=== PATIENT | male | born 1960 | race Caucasian/White ===

== ENCOUNTER 2023-12-05 14:20 | Inpatient (IN) | payer BC, SELFPAY ==
[2023-12-05] VITALS (14 sets, daily range): BP systolic 109–171; BP diastolic 75–108; PULSE 82–120; BMI 31.6; BMI 31.1
--- NOTE | 2023-12-05 11:04 | ED.GENMED ---
Addendum entered and electronically signed by Dmitri Akers MD 12/05/23 13:21:
Secondary diagnosis thrombocytopenia
Consent signed for blood
Original Note:
History of Present Illness
General
Chief Complaint: Anal/Rectal Problem
Source: patient
Exam Limitations: none
Time Seen by Provider: 12/05/23 10:51
History of Present Illness
History of Present Illness:
Patient with 4 episodes of bleeding yesterday. 2-3 episodes today. Describing mostly blood. Describes the clots as dark but the blood is maroon to bright red. Some cramps with this but no significant abdominal pain. No significant history of GI
bleeding. Does feel slightly tired.
Past History
Past History
ED Past Medical History: HTN
ED Past Surgical History: Orthopedic
Social History
Tobacco: Non-smoker
Alcohol: Occasional
Living: with family
Review of Systems
Review of Systems
All Other Systems: Not applicable
Constitutional: Reports fatigue; Denies fever or chills
ABD/GI: Denies vomiting
Phy Exam
Physical Exam
Physical Exam:
GENERAL: Alert and oriented in no apparent distress
EYE: Orbits normal.
NECK: Supple
CARDIAC: Regular rate and rhythm without any obvious murmurs.
LUNGS: Clear breath sounds,normal
ABDOMEN: Soft, without focal tenderness or distention. Rectal exam with maroon to bright red blood. Picture from his toilet shows significant bright red blood with multiple dark clots.
NEUROLOGICAL: Alert and oriented , grossly non-focal
SKIN: Warm and dry, no rash or lesion, no discoloration, skin intact.
MUSCULOSKELETAL: No edema,no deformity.Good color
PSYCH: Normal and appropriate interaction.
Course
Orders/Labs/Results
Orders:
Orders
12/05/23 11:03
IV Insert/Care/Rem.- Treatment PRN
12/05/23 11:09
Type+Screen Urgent
Complete Blood Count/With Diff Urgent
Comprehensive Metabolic Panel Urgent
Lipase Urgent
Abnormal Lab Results
12/05/23
11:09
RBC 3.42 L 10^6/uL
(4.70-6.10)
Hgb 12.1 L g/dL
(13.0-18.0)
Hct 34.0 L %
(39.0-52.0)
MCV 99.4 H fL
(80.0-94.0)
MCH 35.4 H pg
(27.0-31.0)
Plt Count 72 L 10^3/uL
(130-400)
Absolute Lymphs (auto) 0.8 L 10^3/uL
(1.2-3.4)
Lymphocytes % 13.1 L %
(20.5-51.1)
Monocytes % 10.1 H %
(1.7-9.3)
BUN 21 H mg/dl
(9-20)
Total Bilirubin 1.5 H mg/dl
(0.2-1.3)
Alkaline Phosphatase 129 H U/L
(38-126)
12/05/23 11:09
12/05/23 11:09
Vital Signs
Initial and Last Documented VS:
Initial Vital Signs
Temp Pulse Resp BP Pulse Ox
99.0 F 116 20 138/96 98
12/05/23 10:20 12/05/23 10:20 12/05/23 10:20 12/05/23 10:20 12/05/23 10:20
Last Documented Vital Signs
Temp Pulse Resp BP Pulse Ox
99.0 F 109 16 157/89 95
12/05/23 10:20 12/05/23 12:00 12/05/23 12:00 12/05/23 12:00 12/05/23 12:00
*Pulse Oximetry
Patient hypoxic: no
*Critical Care Note
Total Time (30-74mins, 75-104mins- exclusive of procedures): Not Applicable
Data Reviewed
Review of Other/Old Records Reveals: Labs, Records and Testing
ED Attending Note
-
Portions of this chart may have been created with voice recognition software.� Occasional wrong word or��sound alike� substitutions may have occurred due to the inherent limitations of voice recognition software.
Discharge Plan
Departure
Prescriptions:
No Action
gabapentin 300 mg Capsule
300 mg PO TID
metoprolol succinate 50 mg Tablet Extended Release 24 Hr
50 mg PO DAILY
meloxicam 15 mg Tablet
15 mg PO DAILY
Referrals:
Nkechi Franco MD [Family Provider] -
Interventions
Interventions:
*Risk Screen - Suicide Last Done: 12/05/23 10:20
*Neglect/Abuse Screening Last Done: 12/05/23 10:24
*ED COVID-19 Vaccine History Last Done: 12/05/23 10:20
JY-Wchyqf-Xernornlvz Assessment Last Done: 12/05/23 10:52
ED-Skin Assessment Last Done: 12/05/23 10:52
Discharge Date and Time
Print Language: BENGALI
[2023-12-05 11:38] LABS: ALT (SGPT) 30 U/L (0-50); AST (SGOT) 54 U/L (17-59); Albumin 4.1 g/dl (3.5-5.0); Alkaline Phosphatase 129 U/L (38-126); Blood Urea Nitrogen 21 mg/dl (9-20); Calcium 9.1 mg/dl (8.4-10.2); Carbon Dioxide 27 mmol/L (22-30); Chloride 99 mmol/L (98-107); Estimated Creatinine Clearance 115 ml/min; Glucose 97 mg/dl (70-99); Potassium 4.2 mmol/L (3.5-5.1); Sodium 135 mmol/L (135-145); Total Bilirubin 1.5 mg/dl (0.2-1.3); Total Protein 7.2 g/dl (6.3-8.2); eGFR > 60.00
[2023-12-05 11:46] LABS: Lipase 168 U/L (23-300)
[2023-12-05 11:52] LABS: % Basophils 1.2 % (0-2); % Eosinophils 0.7 % (0-6); % Immature Granulocytes 0.2 % (0-0.5); % Lymphocytes 13.1 % (20.5-51.1); % Monocytes 10.1 % (1.7-9.3); % Neutrophils 74.7 % (42.2-75.2); Absolute Basophils 0.1 10^3/uL (0-0.2); Absolute Lymphocytes 0.8 10^3/uL (1.2-3.4); Absolute Monocytes 0.6 10^3/uL (0.1-0.6); Absolute Neutrophils 4.5 10^3/uL (1.4-6.5); Hemoglobin 12.1 g/dL (13.0-18.0); Mean Corp Hgb Conc. 35.6 g/dL (33.0-37.0); Mean Corpuscular Hgb 35.4 pg (27.0-31.0); Mean Corpuscular Volume 99.4 fL (80.0-94.0); Mean Platelet Volume 8.6 fL (7.4-10.4); Nucleated Red Blood Cells % 0 % (-); Platelet Count 72 10^3/uL (130-400); Red Blood Cell Count 3.42 10^6/uL (4.70-6.10); Red Cell Dist. Width 13.2 % (11.5-14.5)
--- NOTE | 2023-12-05 14:11 | HPS.HSE ---
Family Physician
-
Family Physician: Nkechi Franco MD
Chief Complaint
-
Rectal bleeding
History of Present Illness
Patient presents with the rectal bleeding. Started yesterday at 4 PM. He had 1 solid bowel movement which was black in color. Later around 9:30 PM his stomach started to hurt and then he felt like he had to go to the bathroom and he had 5 bowel
movements ever since and the last one was 1230 this morning. The color of the blood was red sometimes but mostly big black with clots. Slept for some time
This morning when he got up ,his stomach pain returned and he had 2 episodes again of rectal bleeding which was mostly black clots and also some bright red. He had 2 of those while waiting in the ER and then 1 while he was in the ER room. He feels
lightheaded with movement but if he is sitting and not doing much he feels okay. No syncope at home. No chest pain or shortness of breath.
2 years ago he had a rectal bleeding which went over a week but it was not as bad;didnt come in to hospital. He saw his GI physician. Had a colonoscopy he thinks at that time. He also had a colonoscopy 5 years ago where and he it was noted he had
polyps. He also had episode of diverticulitis in the years past.
2 years ago he was told he had liver dysfunction and that is when he started to cut down on his alcohol. He was drinking 4-5 times a week and now he has 1 to 2 glass of wine twice a week. He has right shoulder issue and has been using meloxicam
daily for the last 3 months. Denies any [id number] ibuprofen or Aleve addition. He is not on aspirin. Not on any blood thinners.
Medical History
Past Medical History
Past Medical History: Reports HTN and Other (MRSA bacteremia; neuropathy of LE ;not diabetic); Denies CAD or Cancer
Additional Past Medical History:
Had gynecomastia and right breast surgery - non cancerous
Past Surgical History: Reports Other (umblical hernia repair)
Social History
Tobacco: Non-smoker
Alcohol: Occasional
Drug: None
Personal:
Living: With Family
Family History
Family History: Not pertinent
Allergies / Home Medications
Allergies reflects when Allergies were last updated in [facility].
Home Medications with original date entered in [facility]
Allergy/Medication List:
Allergies
Allergy/AdvReac Type Severity Reaction Status Date / Time
lisinopril Allergy Tongue & Verified 12/05/23 10:24
Lip
Swelling
Home Medications
gabapentin 300 mg capsule 300 mg PO TID 01/28/23
meloxicam 15 mg tablet 15 mg PO DAILY 12/05/23
metoprolol succinate 50 mg tablet,extended release 24 hr 50 mg PO DAILY 12/05/23
Review of Systems
-
A 12 point ROS was completed and negative except as noted: Yes
Physical Exam
Vital Signs
Vital Signs
Temp Pulse Resp BP Pulse Ox
99.0 F 109 16 157/89 95
12/05/23 10:20 12/05/23 12:00 12/05/23 12:00 12/05/23 12:00 12/05/23 12:00
Physical Exam
General: Comfortable
HEENT: Moist mucous membranes
Respiratory: Clear
Cardiac: S1/S2, Regular Rhythm and Tachycardia
GI: Soft, Non Distended, Normal Bowel Sounds and Tender (Epigastric area )
Neuro: AO x 3
Psych: Calm
Laboratory Results
-
12/05/23 11:09
12/05/23 11:09
Laboratory Results
Total Bilirubin 1.5 mg/dl (0.2-1.3) H 12/05/23 11:09
AST 54 U/L (17-59) 12/05/23 11:09
ALT 30 U/L (0-50) 12/05/23 11:09
Alkaline Phosphatase 129 U/L (38-126) H 12/05/23 11:09
Lipase 168 U/L (23-300) 12/05/23 11:09
Data Reviewed
-
Lab Data: Labs Reviewed by me
Impression/Plan
-
Acute GI bleed-multiple episodes. Not on any blood thinners. Tachycardic. Lightheadedness. No cardiopulmonary symptoms right now. Blood pressure stable. In view of multiple episodes, history of prior cirrhosis and thrombocytopenia. Patient
will be admitted to hospital for further evaluation.
Keep n.p.o. and start on IV fluids
Start on Protonix
Hold meloxicam
Consult GI for endoscopic eval.
Thrombocytopenia-chronic. Unclear etiology. He does have cirrhotic physiology on an MRI chest a year ago. Follow counts closely. Cirrhotic morphology on prior liver imaging. No medications to account for it.
Abnormal LFTS -no transaminitis but mildly elevated bilirubin and alkaline phosphatase. Noted to have cirrhosis morphology on prior liver imaging. Check INR. Follow liver function testing for now.
HTN - hold meds and follow
Neuropathy-on gabapentin which we will continue
Chronic right shoulder pain on meloxicam which I am told
Full code
--- NOTE | 2023-12-05 14:52 | CON.GI ---
Addendum entered and electronically signed by Jackie Schwartz MD 12/05/23 15:33:
Given cirrhosis with most likely upper GI bleed although on physical exam he has no evidence of ascites will give him prophylactic antibiotics.
Original Note:
Consultation
-
Date/Time Consultation Requested: 12/05/2023
Date/Time Consultation Performed: 12/05/2023
Requesting Provider:
Performing Provider:
Reason for Consultation: GIB
Medical History
Chief Complaint / HPI
Chief Complaint: rectal bleeding/melena
History of Present Illness:
This is a 63-year-old male with past medical history of Lyme disease, cellulitis, MRSA infection, neuropathy of lower extremity, gynecomastia and had right breast surgery and pathology revealed benign PASH, hypertension, cirrhosis secondary to
alcohol who was in his usual state of health up until yesterday evening when he started to experience nausea with a small episode of emesis followed by a large episode of melena. Since then he has had about 5 episodes of melena but he is also
noticed red blood with clots in the stool. He did have dizziness but no syncope. He does have abdominal pain and cramping prior to the bowel movement. No fevers or chills. No chest pain or shortness of breath. He does take meloxicam for a torn
shoulder for the past 3 months. Denies use of aspirin or any other NSAIDs. He had been seeing Dr. Corea and he saw Dr. Robison in October 2022 for rectal bleeding and had a colonoscopy and endoscopy at that time as described below no varices were
noted at that time he did have diverticulosis. He also was recommended labs and also ultrasound and alpha-fetoprotein unfortunately patient had not followed up for these test and did not follow-up in the office either after that. He did have an
MRI in 2021 which confirmed cirrhosis and also had a FibroScan in 2021 fibrosis score of F4. He used to drink about 3 to 4 glasses of wine about 5 times a week but he says that since he was told that he had cirrhosis in 2021 he has been trying to
cut back and he drinks about 2 glasses of wine about twice a week now.
Past Medical History
Past Medical History: Other (Lyme, cellulitis, MRSA bacteremia, neuropathy LE, gynecomastia and right breast surgery - non cancerous/PASH, HTN, ETOH cirrhosis)
Past Surgical History: Other (right breast surgery- PASH/benign, umbilical hernia repair, carpal tunnel, knee arthroscopies)
Social History
Tobacco: Non-Smoker
Alcohol: Other (Used to drink about 4 to 5 glasses of wine about 5 times a week he cut back to 1-2 drinks of alcohol 2 times a week now)
Drug: None
Personal:
Living: With Family
Family History
Family History: Reviewed & Not Pertinent
Allergies / Home Medications
Allergy/AdvReac Type Severity Reaction Status Date / Time
lisinopril Allergy Tongue & Verified 12/05/23 10:24
Lip
Swelling
�Medication �Instructions �Recorded
gabapentin 300 mg capsule 300 mg PO TID 01/28/23
meloxicam 15 mg tablet 15 mg PO DAILY 12/05/23
metoprolol succinate 50 mg 50 mg PO DAILY 12/05/23
tablet,extended release 24 hr
Review of Systems
-
All other systems: A 12 pt ROS was Negative except as stated above in HPI
Vital Signs
Temp Pulse Resp BP Pulse Ox
99.0 F 109 16 157/89 95
12/05/23 10:20 12/05/23 12:00 12/05/23 12:00 12/05/23 12:00 12/05/23 12:00
Physical Exam
Exam
General: Well Developed and No Apparent Distress
HEENT: Normocephalic
Respiratory: Clear and Non Labored Respirations
Cardiac: S1/S2
GI: Soft, Non Distended, Normal Bowel Sounds and Tender (epigastric and lower abdomen)
Musculoskeletal: No Clubbing
Neuro: Awake, Alert and Oriented
Psych: Calm
Results
WBC 6.0 10^3/uL (4.8-10.8) 12/05/23 11:09
Hgb 12.1 g/dL (13.0-18.0) L 12/05/23 11:09
Hct 34.0 % (39.0-52.0) L 12/05/23 11:09
MCV 99.4 fL (80.0-94.0) H 12/05/23 11:09
Plt Count 72 10^3/uL (130-400) L 12/05/23 11:09
Absolute Neuts (auto) 4.5 10^3/uL (1.4-6.5) 12/05/23 11:09
Sodium 135 mmol/L (135-145) 12/05/23 11:09
Potassium 4.2 mmol/L (3.5-5.1) 12/05/23 11:09
Chloride 99 mmol/L (98-107) 12/05/23 11:09
Carbon Dioxide 27 mmol/L (22-30) 12/05/23 11:09
BUN 21 mg/dl (9-20) H 12/05/23 11:09
Creatinine 0.8 mg/dL (0.7-1.3) 12/05/23 11:09
Calcium 9.1 mg/dl (8.4-10.2) 12/05/23 11:09
Total Bilirubin 1.5 mg/dl (0.2-1.3) H 12/05/23 11:09
AST 54 U/L (17-59) 12/05/23 11:09
ALT 30 U/L (0-50) 12/05/23 11:09
Alkaline Phosphatase 129 U/L (38-126) H 12/05/23 11:09
Lipase 168 U/L (23-300) 12/05/23 11:09
Diagnostic Image Results:
03/18/22 MRI
IMPRESSION: Liver has cirrhotic morphology, with findings compatible with portal hypertension. These changes have developed since previous examination of May 13, 2013.
Prior GI Procedures:
11/16/2022 colonoscopy
Impression: - The examined portion of the ileum was normal.
- Diverticulosis in the sigmoid colon, in the
descending colon, in the transverse colon and in the
ascending colon.
- Internal hemorrhoids.
- No specimens collected.
08/28/2018 colonoscopy
Impression: - Diverticulosis in the sigmoid colon, in the descending
colon, in the transverse colon and in the ascending
colon.
- The examination was otherwise normal.
- No specimens collected.
05/27/2013 colonoscopy
Impression: - Diverticulosis in the sigmoid colon, in the descending
colon and in the transverse colon.
- One 3 mm polyp in the proximal ascending colon.
Resected and retrieved.- benign HP
- One 1 mm polyp in the descending colon. Resected and
retrieved.- benign lymphoid follicle
- The examination was otherwise normal.
11/16/22 EGD
Impression: - Normal esophagus. No varices.
- Portal hypertensive gastropathy.
- Normal examined duodenum.
- No specimens collected.
Assessment / Plan
-
1. GI bleed with melena and also has maroon stool, nausea and abdominal pain most likely upper GI bleed from PUD he has been taking meloxicam for the past 3 months for shoulder pain. He has been started on Protonix drip. Will also start him on
octreotide for possible variceal bleed he does have underlying cirrhosis secondary to alcohol, did have an endoscopy in 2022 which did not reveal varices but had portal gastropathy at that time. Avoid NSAIDs. Monitor hemoglobin. Will schedule him
for urgent endoscopy. More likely upper GI bleed, elevated BUN but cannot rule out possible diverticular bleed he had lower GI bleed in 2022. His hemoglobin is currently stable.
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
follow-ups and HCC surveillance. Will get ultrasound and INR and AFP. Follow-up with Dr. Robison after DC. Reinforced importance of complete alcohol abstinence.
Data Reviewed
-
MRI: Report Reviewed by me
-
-
Thank you for consultation and allowing me to participate in the patient's care. Please call the supervisor concrete block [employer] GI physician during the after hours with any questions or concerns.
[2023-12-05] MEDS: SANDOSTATIN 500.6 MCG IV (16:12)
--- NOTE | 2023-12-05 16:30 | PTCARENOTE ---
Addendum entered by Benedicto Madrid RN 12/05/23 16:36:
Pt heading down to GI lab at 1630. pt arrived at 1530, stand by assist to get into hospital bed. This Rn and PCT assisted pt in getting settled in. placed on drive away driver, second piv initiated, lab work drawn, IV med x1 initiated, orthos
obtained, changed into appropriate hospital gown. pt with large bloody BM prior to going to GI lab. pt aaox3 upon arrival. This Rn was unable to complete an admission or preform an exam prior to pt being called to GI lab.
Original Note:
pt heading down to GI lab.
[2023-12-05 16:46] LABS: Hematocrit 34.7 % (39.0-52.0); Hemoglobin 12.4 g/dL (13.0-18.0)
--- NOTE | 2023-12-05 17:04 | PTCARENOTE ---
warehouse representative from lab called and stated 'there was an accident and the lab was dropped so we need a new specimen.' This Rn requested lab touch base with GI lab as pt is with them to see if another sample can be obtained. MD Smart made aware via
T.T. pt remains off of the floor.
[2023-12-05] MEDS: D5/0.45%NACL 1000 IV (17:37)
[2023-12-05] MEDS: ROCEPHIN 1000 MG IV (18:17)
[2023-12-05] MEDS: STERILE WATER FOR INJECTION 10 ML IV (18:17)
[2023-12-05] MEDS: PROTONIX 100 IV (18:25)
[2023-12-05 18:34] LABS: INR 1.43; PT 17.5 Sec (11.4-14.6)
[2023-12-05 18:35] LABS: APTT 31.7 Sec (23.4-35.0)
[2023-12-06] VITALS (11 sets, daily range): BP systolic 114–163; BP diastolic 72–98; PULSE 73–110
[2023-12-06] MEDS: PROTONIX 100 IV ×3 (03:25→21:20)
[2023-12-06] MEDS: D5/0.45%NACL 1000 IV ×2 (03:31→18:00)
--- NOTE | 2023-12-06 08:09 | W.PN.GI.CBS2 ---
Today's Communication / Plan
-
start clears
DC Octreotide
given cirrhosis and UGIB will continue antibiotics X 7 days
Assessment / Plan
-
1. UGIB status post EGD yesterday which showed esophagitis, gastric antral ulcer status post gold probe and duodenal bulb ulcer. Will start clear liquids and if no further bleeding can advance diet to low residue diet. Continue Protonix drip for
another 24 hours will DC octreotide drip no esophageal or gastric varices were noted on EGD yesterday. Told patient to avoid NSAIDs after DC. Will need repeat endoscopy in 6 to 8 weeks to check for healing and if he has further bleeding then will
need EGD repeated inpatient. Given cirrhosis with upper GI bleed continue prophylactic antibiotics for total of 7 days. No ascites noted on exam.
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
follow-ups and HCC surveillance. Will get ultrasound and INR and AFP. Follow-up with Dr. Robison after DC. Reinforced importance of complete alcohol abstinence.
Subjective
Subjective
Date of Service: December 06, 2023
No further nausea or vomiting. Abdominal pain is improving, last episode of melena was midnight. Hemoglobin today a.m. is pending
Objective
Data Reviewed
Laboratory Data:
Laboratory Results
PT 17.5 Sec (11.4-14.6) H 12/05/23 18:15
INR 1.43 12/05/23 18:15
APTT 31.7 Sec (23.4-35.0) 12/05/23 18:15
Total Bilirubin 1.5 mg/dl (0.2-1.3) H 12/05/23 11:09
AST 54 U/L (17-59) 12/05/23 11:09
ALT 30 U/L (0-50) 12/05/23 11:09
Alkaline Phosphatase 129 U/L (38-126) H 12/05/23 11:09
Lipase 168 U/L (23-300) 12/05/23 11:09
Vital Signs and I&O:
Vital Signs
Temp Pulse Resp BP Pulse Ox
98.1 F 93 20 142/82 65
12/06/23 03:58 12/06/23 00:06 12/06/23 00:06 12/06/23 00:06 12/06/23 03:58
I&O
12/05/23 12/06/23 12/07/23
06:59 06:59 06:59
Intake Total 1228.6 / 1228.6
Output Total 600 / 600
Balance 628.6 / 628.6
12/05/23 EGD Impression: - LA Grade C esophagitis with no bleeding.
- Z-line variable, 41 cm from the incisors.
- Non-obstructing non-bleeding gastric ulcer with
pigmented material. Suspicious for NSAID induced
etiology. Treated with bipolar cautery.
- Erythematous mucosa in the gastric body and antrum.
- Non-obstructing non-bleeding duodenal ulcer.
- Normal second portion of the duodenum.
- No specimens collected.
Physical Exam
Physical Exam
Cardiology: Normal Sinus Rhythm
GI: Soft, Non Distended and Tender (mild lower and epigastric tenderness)
[2023-12-06 09:29] LABS: Hematocrit 30.8 % (39.0-52.0); Mean Corp Hgb Conc. 35.7 g/dL (33.0-37.0); Mean Corpuscular Hgb 36.5 pg (27.0-31.0); Mean Corpuscular Volume 102.3 fL (80.0-94.0); Mean Platelet Volume 9.1 fL (7.4-10.4); Platelet Count 69 10^3/uL (130-400); Red Blood Cell Count 3.01 10^6/uL (4.70-6.10); Red Cell Dist. Width 13.2 % (11.5-14.5); White Blood Cell Count 4.7 10^3/uL (4.8-10.8)
[2023-12-06] MEDS: ROCEPHIN 1000 MG IV (09:33)
[2023-12-06] MEDS: STERILE WATER FOR INJECTION 10 ML IV (09:34)
[2023-12-06 09:44] LABS: ALT (SGPT) 26 U/L (0-50); AST (SGOT) 48 U/L (17-59); Albumin 3.7 g/dl (3.5-5.0); Alkaline Phosphatase 86 U/L (38-126); Blood Urea Nitrogen 23 mg/dl (9-20); Calcium 8.8 mg/dl (8.4-10.2); Carbon Dioxide 26 mmol/L (22-30); Chloride 102 mmol/L (98-107); Estimated Creatinine Clearance 91 ml/min; Glucose 116 mg/dl (70-99); Potassium 4.1 mmol/L (3.5-5.1); Sodium 135 mmol/L (135-145); Total Bilirubin 2.3 mg/dl (0.2-1.3); Total Protein 6.6 g/dl (6.3-8.2); eGFR > 60.00
[2023-12-06 10:40] LABS: AFP Male/Tumor Marker 6.37 ng/ml
--- NOTE | 2023-12-06 12:35 | CM ---
Initial assessment completed with patient who lives with his in a 2 story home plus basement with B/B on 2nd and 1/2 bath on 1st with 3 steps to enter home. No DME or in-home services. [employer] was independent, drove and worked. No history of
psychiatric hospitalizations. Pharmacy is [facility] in [place] and PCP is Dr. Nkechi Franco. Anticipate home with no needs.
--- NOTE | 2023-12-06 12:51 | W.PN.HOSP.TC ---
Today's Communication/Plan
-
Continue Protonix drip
Continue antibiotics for another 5 days
Start clears
Continue Metoprolol and Gabepentin
Start Tramadol
Assessment / Plan
Assessment / Plan
IMPRESSION: 63 y Male with past history of hypertension, diverticulosis, colon polyps, cirrhosis (likely secondary to alcohol), lyme disease presenting with melena and right blood with clots in his stool (admission Hgb: 12.1). No abdominal pain
PLAN:
Acute upper GI bleeding
- Likely PUD secondary to meloxicam use - avoid use
- Consult GI - endoscopy - esophagitis, non-bleeding pigmented gastric ulcer and non-bleeding duodenal ulcer, no esophageal varices. Continue Protonix IV for another 24 hours, d/c ed Octreotide, repeat EGD in 6 weeks, avoid NSAIDs, continue
antibiotics for 7 days (day 2) given UGIB and cirrhosis
- Start clears
- Hgb 11.0 today. Transfuse if Hgb <7
- Outpatient GI follow-up with Dr. Robison
Thrombocytopenia (chronic)
- Likely in the setting of cirrhosis
- Abdomen Ultrasound -mild hepatic cirrhosis, mildly enlarged spleen, stable gallbladder polyps.
- Outpatient GI follow-up with Dr. Robison
Increased INR
- INR:1.43
- Likely secondary to cirrhosis
- Outpatient GI follow-up with Dr. Robison
Shoulder pain (chronic)
- Start low dose tramadol
Essential hypertension
- Continue home meds (metoprolol 50 daily)
Lower extremity neuropathy
- Continue home meds (Gabapentin 300 TID)
Full code
Anticipated Discharge: Within 24 hours
Subjective/Interval History
-
Date of Service: December 06, 2023
Objective Data
-
Labs:
Laboratory Results
12/06/23 12/06/23 12/06/23
07:49 07:49 07:49
WBC 4.7 L
Hgb Cancelled 11.0 L Cancelled
Hct Cancelled
Plt Count
Sodium
Potassium
Chloride
Carbon Dioxide
BUN
Creatinine
Glucose
Calcium
Total Bilirubin
AST
ALT
Alkaline Phosphatase
12/06/23 12/06/23
07:49 07:49
WBC
Hgb
Hct 30.8 L Cancelled
Plt Count 69 L
Sodium 135
Potassium 4.1
Chloride 102
Carbon Dioxide 26
BUN 23 H
Creatinine 1.0
Glucose 116 H
Calcium 8.8
Total Bilirubin 2.3 H D
AST 48
ALT 26
Alkaline Phosphatase 86
Vital Signs:
Vital Signs
Temp Pulse Resp BP Pulse Ox
98.2 F 73 18 145/83 96
12/06/23 11:15 12/06/23 11:15 12/06/23 11:15 12/06/23 11:15 12/06/23 11:15
I&O
12/05/23 12/06/23 12/07/23
06:59 06:59 06:59
Intake Total 1228.6 / 1228.6
Output Total 600 / 600
Balance 628.6 / 628.6
Review of Systems
-
History Source: Patient
Constitutional: Reports No Symptoms
EENT: Reports No Symptoms Reported
Respiratory: Reports No Symptoms
Cardiac: Reports No Symptoms
Abdomen/GI: Reports Abdominal Pain, Bloody Stools and Black Stools
Genitourinary: Reports No Symptoms
Musculoskeletal: Reports No Symptoms
Skin: Reports No Symptoms
Neuro: Reports Lightheadedness (postural )
Endocrine: Reports No Symptoms
Hematologic / Lymphatic: Reports No Symptoms
Allergy / Immunology: Reports No Symptoms
Physical Exam
-
General: Well Developed, Well Nourished, No Apparent Distress and Comfortable
Respiratory: Clear to Auscultation
Cardiac: Regular Rhythm and S1/S2
GI: Soft, Nontender, Nondistended and Normal Bowel Sounds
Rectal: Red
Genito-urinary: No Costovertebral Tender
Musculoskeletal: No Clubbing and No Edema
Neuro: Awake, Alert and Oriented
Hematologic / Lymphatic: No Lymphadenopathy
Psych: Calm
--- NOTE | 2023-12-06 14:03 | W.PN.UPDATE ---
Update Note
Progress Note Update
Seen and examined by me independently in collaboration with the medical accountant.
Lab data and imaging data reviewed.
Addendum as below :
No nausea vomiting. No hematemesis. Improved abdominal pain. No further rectal bleeding.
Denies shortness of breath or chest pain.
Abdomen benign.
Hemodynamically stable.
Blood count drop- H&H 11. Continue to follow.
EGD findings of gastric and duodenal ulcer noted.
Peptic ulcer disease suspected secondary NSAIDs. Continue with IV Protonix drip. Follow H&H. Follow biopsy report and follow with GI for repeat endoscopy.
Chronic right shoulder pain patient advised against NSAIDs. Continue with aspirin. Add tramadol. Follow with his primary orthopedics as an outpatient.
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 He still has glass of wine twice a week. Synthetic dysfunction noted with elevated INR. Albumin is ok. Mild cholestasis noted. No varices
noted. No ascites or HE noted. Advised to quit alcohol all together with these findings. prophylactic ceftriaxone due to GI bleeding.
Chronic thrombocytopenia-patient today tells me he is aware about low platelets. He states it was noted when he had a bacteremic infection and after as well. Plt 69,000 today. Not on any anticoagulants. No obvious external bleeding. Continue
to follow. To keep away from alcohol.
Macrocytosis noted - check B12 , advised to stay away from ETOH.
HTN -cw meds
Likely dc in am if stable.
[2023-12-06] MEDS: TOPROL XL 50 MG PO (14:16)
[2023-12-06] MEDS: NEURONTIN 300 MG PO ×2 (17:56→21:15)
[2023-12-07 03:12] VITALS: BP 143/81
[2023-12-07] MEDS: PROTONIX 100 IV (06:40)
[2023-12-07 07:01] LABS: % Basophils 1.1 % (0-2); % Eosinophils 4.4 % (0-6); % Immature Granulocytes 0.3 % (0-0.5); % Lymphocytes 21.1 % (20.5-51.1); % Monocytes 11.4 % (1.7-9.3); % Neutrophils 61.7 % (42.2-75.2); Absolute Eosinophils 0.2 10^3/uL (0-0.7); Absolute Lymphocytes 0.8 10^3/uL (1.2-3.4); Absolute Monocytes 0.4 10^3/uL (0.1-0.6); Absolute Neutrophils 2.2 10^3/uL (1.4-6.5); Hematocrit 29.6 % (39.0-52.0); Hemoglobin 10.7 g/dL (13.0-18.0); Mean Corp Hgb Conc. 36.1 g/dL (33.0-37.0); Mean Corpuscular Hgb 36.4 pg (27.0-31.0); Mean Corpuscular Volume 100.7 fL (80.0-94.0); Mean Platelet Volume 9.2 fL (7.4-10.4); Nucleated Red Blood Cells % 0 % (-); Platelet Count 59 10^3/uL (130-400); Red Blood Cell Count 2.94 10^6/uL (4.70-6.10); Red Cell Dist. Width 12.8 % (11.5-14.5); White Blood Cell Count 3.6 10^3/uL (4.8-10.8)
[2023-12-07 07:03] LABS: Blood Urea Nitrogen 15 mg/dl (9-20); Calcium 8.8 mg/dl (8.4-10.2); Carbon Dioxide 24 mmol/L (22-30); Chloride 104 mmol/L (98-107); Estimated Creatinine Clearance 101 ml/min; Glucose 121 mg/dl (70-99); Potassium 3.7 mmol/L (3.5-5.1); Sodium 136 mmol/L (135-145); eGFR > 60.00
[2023-12-07 07:23] VITALS: BP 165/90
[2023-12-07 08:09] LABS: ALT (SGPT) 34 U/L (0-50); AST (SGOT) 70 U/L (17-59); Albumin 3.6 g/dl (3.5-5.0); Alkaline Phosphatase 76 U/L (38-126); Total Protein 6.5 g/dl (6.3-8.2)
--- NOTE | 2023-12-07 08:22 | W.PN.GI.CBS2 ---
Today's Communication / Plan
-
Will change PPI to bid
Will adv diet
OK to DC home today
Assessment / Plan
-
1. UGIB status post EGD which showed esophagitis, gastric antral ulcer status post gold probe and duodenal bulb ulcer. no esophageal or gastric varices were noted. No further bleeding. Will advance diet to low residue diet. patient. Given
cirrhosis with upper GI bleed continue prophylactic antibiotics for total of 7 days. Told patient to avoid NSAIDs after DC. Will need repeat endoscopy in 8 weeks to check for healing. Will DC Protonix drip and changed to twice daily. Okay to DC
home today
2. 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
follow-ups and HCC surveillance. Follow-up with Dr. Robison after DC. Reinforced importance of complete alcohol abstinence. Ultrasound this admission negative for HCC and normal AFP level of 6.37 on 12/06/2023
3. 2 small 5 mm gallbladder polyps noted on ultrasound will be getting ultrasound every 6 months for HCC surveillance so will also monitor the polyps
Subjective
Subjective
Date of Service: December 07, 2023
No further bleeding. Hemoglobin dropped initially with the bleed and now remains stable. No abdominal pain no nausea or vomiting.
Objective
Data Reviewed
Laboratory Data:
Laboratory Results
12/07/23 05:50
12/07/23 05:50
Laboratory Results
PT 17.5 Sec (11.4-14.6) H 12/05/23 18:15
INR 1.43 12/05/23 18:15
APTT 31.7 Sec (23.4-35.0) 12/05/23 18:15
Total Bilirubin 2.0 mg/dl (0.2-1.3) H 12/07/23 05:50
AST 70 U/L (17-59) H 12/07/23 05:50
ALT 34 U/L (0-50) 12/07/23 05:50
Alkaline Phosphatase 76 U/L (38-126) 12/07/23 05:50
Lipase 168 U/L (23-300) 12/05/23 11:09
Vital Signs and I&O:
Vital Signs
Temp Pulse Resp BP Pulse Ox
98.3 F 69 18 165/90 98
12/07/23 07:23 12/07/23 07:23 12/07/23 07:23 12/07/23 07:23 12/07/23 07:23
I&O
12/06/23 12/07/23 12/08/23
06:59 06:59 06:59
Intake Total 1228.6 / 1228.6 2120 / 2120
Output Total 600 / 600 4200 / 4200
Balance 628.6 / 628.6 -2080 / -0
12/06/23 US abdomen IMPRESSION:
1. Findings suggesting mild hepatic cirrhosis and steatosis without discrete lesions identified.
2. Grossly stable small gallbladder polyps.
3. Borderline splenomegaly.
Physical Exam
Physical Exam
Cardiology: Normal Sinus Rhythm
Pulmonary: Clear
GI: Soft, Non Distended, Non Tender and Normal Bowel Sounds
[2023-12-07] MEDS: NEURONTIN 300 MG PO (08:26)
[2023-12-07] MEDS: TOPROL XL 50 MG PO (08:26)
[2023-12-07] MEDS: ROCEPHIN 1000 MG IV (08:27)
[2023-12-07] MEDS: STERILE WATER FOR INJECTION 10 ML IV (08:27)
[2023-12-07] MEDS: FLUSH (NSS) 2 FLUSH IV (08:28)
--- NOTE | 2023-12-07 09:08 | W.DCSUMMARY ---
Discharge Summary
Discharge Data
Date of Admission: 12/05/23
Date of Discharge: 12/07/23
-
Pending Results: No (Vitamin B12)
Hospital Course
Primary diagnosis:
Upper GI bleeding secondary to gastric and duodenal ulcers probably due to NSAID use
Chronic thrombocytopenia
Cirrhosis
Chronic shoulder pain
Secondary diagnosis:
Essential hypertension
Lower extremity neuropathy
63yo M with history of Lyme disease, hypertension, MRSA bacteremia, cirrhosis (secondary to alcohol), diverticulosis and colon polyps who came to the ER with bright red blood with clots in stool. Patient was taking Meloxicam for the past three
months for shoulder pain. Discontinued at admission. Hemoglobin initially dropped (12.4 admission to 11.0 day 1) but remains stable now (10.7). Macrocytosis noted, Vitamin B12 normal. Endoscopy revealed non-bleeding pigmented gastric ulcer and
non-bleeding duodenal ulcer, esophagitis, no esophageal varices. Patient was started on Protonix IV drip and ceftriaxone (SBP prophylaxis). Has chronic thrombocytopenia (likely in the setting of cirrhosis), elevated INR (1.43). Recommended
outpatient GI follow-up with Dr. Robison for evaluation of chronic thrombocytopenia and HCC surveillance. Abdominal ultrasound this admission was negative for HCC, 2 small 5 mm gallbladder polyps. AFP level normal (6.37). Will need repeat EGD in 6
weeks to assess healing of ulcers. Patient advised to avoid NSAID use and abstain from alcohol.
Patient is medically stable to be discharged home with pantoprazole 40mg twice daily and bactrim 400-80mg daily. Continue metoprolol and gabapentin as prior to admission. Avoid NSAID use and alcohol. Outpatient follow-up with GI.
Discharge Plan
-
Patient Disposition: Home (Routine Discharge)
Discharge Diagnosis/Procedures: Upper gastrointestinal bleeding secondary to gastric and duodenal ulcer possibly from NSAID use, Cirrhosis, Chronic thrombocytopenia, hypertension, right shoulder pain
Condition: Good
Diet: Regular
Additional Diets: completely abstain from alcohol
Activity: As tolerated
Driving Restrictions: As prior to admission
Bathing Restrictions: None
Blood Work: CBC in one week - obtain through your PCP
Referrals:
Dale Robison MD [Active] - in one week (HCC surveillance)
Nkechi Franco MD [Family Provider] - in less than 1 week
Prescriptions:
New
pantoprazole 40 mg Tablet,Delayed Release (Dr/Ec)
40 mg PO BID Qty: 60 1RF
sulfamethoxazole-trimethoprim 400-80 mg tablet
1 tab PO DAILY Qty: 4 0RF
Continued
gabapentin 300 mg Capsule
300 mg PO TID
metoprolol succinate 50 mg Tablet Extended Release 24 Hr
50 mg PO DAILY
Discontinued
meloxicam 15 mg Tablet
15 mg PO DAILY
Discharge Orders:
Discharge Patient (As Directed); Ordered 12/07/23
Ordered By: Marlene Davies
Discharge Date and Time
Discharge Date/Time: 12/07/23 11:07
Print Language: ARMENIAN
--- NOTE | 2023-12-07 09:39 | W.PN.UPDATE ---
Addendum entered and electronically signed by Kumar Smart MD 12/07/23 09:51:
cirrhosis and GI bleed he is on ceftriaxone prophylaxis. Had been received 3 days of treatment. Will switch to oral Bactrim for 4 more days as part of prophylaxis.
Original Note:
Update Note
Progress Note Update
Read, reviewed, and agree. See progress note for additional details. Time spent coordinating care, DC planning, review of DC plan of care with resident, transition of care, review of records in EMR, med rec, consults, notes, d/w consultants,
nursing, family, and CM 35 mins
seen and examined by me independently in collaboration with the medical physics professor Marlene.
Lab data data reviewed.
Addendum as below :
No further rectal bleeding or bowel movement. Tolerating diet without nausea or vomiting. No abdominal pain.
Abdomen benign without tenderness.
H&H without significant drop from yesterday.
Acute GI bleed with blood loss anemia not requiring transfusion. Secondary to peptic ulcer disease-gastric and duodenal. No further external active bleeding. H&H stable compared to yesterday. Finishing IV PPI drip. Will switch over to oral PPI
and discharged home. Advised to avoid NSAIDs. Follow-up with GI for biopsy report as well as for rererelook endoscopy in 6 to 8 weeks time.
Regarding the pain for which he was taking NSAID he feels okay and will try to manage with Tylenol .
Cirrhosis with splenomegaly but no varices or ascites. No hepatic encephalopathy. Advised to abstain completely from alcohol and follow-up with GI as an outpatient.LFTs noted -follow as OP.
Chronic thrombocytopenia-with cirrhosis and splenomegaly suspected possibly related to hepatic disease. Advised wrongly to completely abstain from alcohol. Platelets are more than 50,000. Advised to follow-up next week with a repeat blood test.
Again no evidence of external bleeding.
--- NOTE | 2023-12-07 10:06 | W.PN.HOSP.TC ---
Today's Communication/Plan
-
Discharge home with pantoprazole twice daily, Bactrim (for 4 additional days), continue gabapentin and metoprolol
Recommended outpatient GI follow-up for evaluation of chronic thrombocytopenia and HCC surveillance
Outpatient follow-up in 6 weeks for repeat EGD
Assessment / Plan
Assessment / Plan
IMPRESSION: 63 y Male with past history of hypertension, diverticulosis, colon polyps, cirrhosis (likely secondary to alcohol), lyme disease presenting with melena and right blood with clots in his stool (admission Hgb: 12.1). Patient is medically
stable to be discharged home.
PLAN:
Acute upper GI bleeding
- Likely PUD secondary to meloxicam use - avoid use
- Consult GI - endoscopy - esophagitis, non-bleeding pigmented gastric ulcer and non-bleeding duodenal ulcer, no esophageal varices. Continue Protonix IV for another 24 hours, d/c ed Octreotide, repeat EGD in 6 weeks, avoid NSAIDs, continue
antibiotics for 7 days (day 3) given UGIB and cirrhosis. Per GI consult, transition to pantoprazole 40 mg twice daily and continue antibiotics (Bactrim for 4 additional days)
- Start clears, transition to advance diet
- Hgb 11.0 today. Transfuse if Hgb <7
- Outpatient GI follow-up with Dr. Robison
Thrombocytopenia (chronic)
- Likely in the setting of cirrhosis. Platelet count is 59,000 today.
- Abdomen Ultrasound -mild hepatic cirrhosis, mildly enlarged spleen, stable gallbladder polyps.
- Outpatient GI follow-up with Dr. Robison
Increased INR
- INR:1.43
- Likely secondary to cirrhosis
- Outpatient GI follow-up with Dr. Robison
Shoulder pain (chronic)
- Patient tolerates pain and is not willing to take any pain medications
- Patient understands that NSAIDs (meloxicam) should not be used
Essential hypertension
- Continue home meds (metoprolol 50 daily)
Lower extremity neuropathy
- Continue home meds (Gabapentin 300 TID)
Full code
Anticipated Discharge: Today
Subjective/Interval History
-
Date of Service: December 07, 2023
Objective Data
-
Labs:
Laboratory Results
12/07/23
05:50
WBC 3.6 L
Hgb 10.7 L
Hct 29.6 L
Plt Count 59 L
Sodium 136
Potassium 3.7
Chloride 104
Carbon Dioxide 24
BUN 15
Creatinine 0.9
Glucose 121 H
Calcium 8.8
Total Bilirubin 2.0 H
AST 70 H
ALT 34
Alkaline Phosphatase 76
Vital Signs:
Vital Signs
Temp Pulse Resp BP Pulse Ox
98.3 F 69 18 165/90 98
12/07/23 07:23 12/07/23 07:23 12/07/23 07:23 12/07/23 07:23 12/07/23 07:23
I&O
12/06/23 12/07/23 12/08/23
06:59 06:59 06:59
Intake Total 1228.6 / 1228.6 2119 / 2119
Output Total 600 / 600 4200 / 4200
Balance 628.6 / 628.6 -2079 /
Review of Systems
-
History Source: Patient
Constitutional: Reports No Symptoms
EENT: Reports No Symptoms Reported
Respiratory: Reports No Symptoms
Cardiac: Reports No Symptoms
Abdomen/GI: Reports Abdominal Pain, Bloody Stools and Black Stools
Genitourinary: Reports No Symptoms
Musculoskeletal: Reports No Symptoms
Skin: Reports No Symptoms
Neuro: Reports Lightheadedness (postural )
Endocrine: Reports No Symptoms
Hematologic / Lymphatic: Reports No Symptoms
Allergy / Immunology: Reports No Symptoms
Physical Exam
-
General: Well Developed, Well Nourished, No Apparent Distress and Comfortable
Respiratory: Clear to Auscultation
Cardiac: Regular Rhythm and S1/S2
GI: Soft, Nontender, Nondistended and Normal Bowel Sounds
Rectal: Red
Genito-urinary: No Costovertebral Tender
Musculoskeletal: No Clubbing and No Edema
Neuro: Awake, Alert and Oriented
Hematologic / Lymphatic: No Lymphadenopathy
Psych: Calm
--- NOTE | 2023-12-07 10:54 | CM ---
CM reviewed chart and noted dc order
Beside meeting with pt- no dc needs
Plans to drive self home
Discharge- home, no needs
[2023-12-07 12:30] LABS: Vitamin B12 768 pg/ml (239-931)
== END 2023-12-07 11:07 | disposition home or self-care (01) | DRG 379 ==
LOC: 2 NORTH 14:20
PROVIDERS: Internal Medicine Gastroenterology; ADMITTING PHYSICIAN Internal Medicine; EMERGENCY PHYSICIAN Emergency Medicine; FAMILY PHYSICIAN Family Medicine; OTHER PHYSICIAN Internal Medicine Gastroenterology
PROC: 0D568ZZ Destruction of Stomach, Via Natural or Artificial Opening Endoscopic (ICD-10-PCS; 2023-12-05)
DX: K25.4 Chronic or unspecified gastric ulcer with hemorrhage (principal); K26.4 Chronic or unspecified duodenal ulcer with hemorrhage; T39.395A Adverse effect of other nonsteroidal anti-inflammatory drugs [NSAID], initial encounter; I10 Essential (primary) hypertension; K70.30 Alcoholic cirrhosis of liver without ascites; K20.90 Esophagitis, unspecified without bleeding; N62 Hypertrophy of breast; K64.8 Other hemorrhoids; D69.59 Other secondary thrombocytopenia; M25.511 Pain in right shoulder; Z86.14 Personal history of Methicillin resistant Staphylococcus aureus infection; G89.29 Other chronic pain; G57.92 Unspecified mononeuropathy of left lower limb; Z88.8 Allergy status to other drugs, medicaments and biological substances; Z79.899 Other long term (current) drug therapy
CPT/HCPCS: 76700; 80048; 80053; 82040; 82105; 82247; 82607; 83690; 84075; 84155; 84450; 84460; 85014; 85018; 85025; 85027; 85610; 85730; 86850; 86900; 86901; 87070; 99285

== ENCOUNTER → 2024-03-12 06:18 | Day surgery (SDC) | payer BC, SELFPAY | LOC: GI 06:18 | PROVIDERS: ATTENDING PHYSICIAN Internal Medicine Gastroenterology | DX: K31.89 Other diseases of stomach and duodenum (principal); K76.6 Portal hypertension; K29.80 Duodenitis without bleeding; Z87.11 Personal history of peptic ulcer disease | CPT/HCPCS: 43239; 88305; 88342 ==

== ENCOUNTER 2024-04-10 07:17 | Day surgery (SDC) | payer BC, SELFPAY ==
[2024-04-10 08:10] VITALS: BP 166/110
[2024-04-10 08:20] VITALS: BMI 32.6
[2024-04-10 08:21] VITALS: BMI 32.6
[2024-04-10] MEDS: TYLENOL 1000 MG PO (08:34)
[2024-04-10] MEDS: NORMOSOL-R/PLASMALYTE-A 1000 IV (08:35)
[2024-04-10 10:18] VITALS: BP 138/94
[2024-04-10 10:30] VITALS: BP 158/111
[2024-04-10 10:42] VITALS: BP 159/82
--- NOTE | 2024-04-10 11:40 | W.IMMPOSTOP ---
Surgical Immed Post Op Note
-
Primary Surgeon:margarita
Assisting Surgeon: Roro TAYLOR
Pre-op Diagnosis: Lipoma of back
Post-op Diagnosis: Same
Procedure Performed: Excision of lipoma
Anesthesia Type: MAC Local
Specimen / Cultures: Lipoma
Estimated Blood Loss: 5cc
Complications: None immediate
Operative Findings: 3x2cm lipoma excised in toto
--- NOTE | 2024-04-13 09:44 | OR.RPT ---
Operative Report
Operative Report
Primary Surgeon:margarita
Assisting Surgeon: Roro TAYLOR
Pre-op Diagnosis: Lipoma of back
Post-op Diagnosis: Same
Procedure Performed: Excision of lipoma
Anesthesia Type: MAC Local
Specimen / Cultures: Lipoma
Estimated Blood Loss: 5cc
Complications: None immediate
Operative Findings: 3x2cm lipoma excised in toto
Date of surgery: 04/10/24
Indications: 63M with symptomatic lipoma on his back, excision under MAC local wa elected. The area was marked with the patient in preop.
PROCEDURE: After informed consent was obtained, the patient was brought to the operating suite. He was placed in the right lateral decubitus position and was given IV sedation by the Anesthesia team. The area was prepped and draped in the usual
sterile fashion. The area was infiltrated with 1% lidocaine with epinephrine. A full thickness elliptical incision was made with a #15 blade over the mass the carried down to the capsule with electrocautery. The mass was freed from surrounding
attachments with electrocautery and was delivered through the wound in toto. The wound was irrigated with sterile saline and closed in layers with 3-0 Vicryl deep dermal sutures and a running subcuticular 4-0 monocryl suture. topical skin glue was
applied. The pt tolerated the procedure well and was taken to the recovery room in stable condition.
== END 2024-04-10 11:45 | disposition home or self-care (01) ==
LOC: SDS 07:17
PROVIDERS: ATTENDING PHYSICIAN Surgery
DX: D17.1 Benign lipomatous neoplasm of skin and subcutaneous tissue of trunk (principal)
CPT/HCPCS: 11406; 88304; 87070; 88377

== ENCOUNTER 2024-06-02 06:20 | Day surgery (SDC) | payer BC, SELFPAY ==
[2024-05-18 11:08] LABS: Blood Urea Nitrogen 9 mg/dl (9-20); Calcium 8.6 mg/dl (8.4-10.2); Carbon Dioxide 31 mmol/L (22-30); Chloride 99 mmol/L (98-107); Glucose 107 mg/dl (70-99); Potassium 4.1 mmol/L (3.5-5.1); Sodium 141 mmol/L (135-145); eGFR > 60.00
[2024-05-18 11:14] LABS: % Basophils 1.6 % (0-2); % Eosinophils 2.2 % (0-6); % Immature Granulocytes 0.2 % (0-0.5); % Lymphocytes 16.8 % (20.5-51.1); % Monocytes 10.8 % (1.7-9.3); % Neutrophils 68.4 % (42.2-75.2); Absolute Basophils 0.1 10^3/uL (0-0.2); Absolute Eosinophils 0.1 10^3/uL (0-0.7); Absolute Lymphocytes 0.8 10^3/uL (1.2-3.4); Absolute Monocytes 0.5 10^3/uL (0.1-0.6); Absolute Neutrophils 3.1 10^3/uL (1.4-6.5); Hematocrit 43.2 % (39.0-52.0); Hemoglobin 14.5 g/dL (13.0-18.0); Mean Corp Hgb Conc. 33.6 g/dL (33.0-37.0); Mean Corpuscular Volume 98.4 fL (80.0-94.0); Mean Platelet Volume 9.3 fL (7.4-10.4); Nucleated Red Blood Cells % 0 % (-); Platelet Count 77 10^3/uL (130-400); Red Blood Cell Count 4.39 10^6/uL (4.70-6.10); Red Cell Dist. Width 14.4 % (11.5-14.5); White Blood Cell Count 4.5 10^3/uL (4.8-10.8)
[2024-05-18 14:03] VITALS: BMI 33.2
[2024-06-02] VITALS (8 sets, daily range): BP systolic 135–175; BP diastolic 91–117; BMI 33.2
[2024-06-02] MEDS: NORMOSOL-R/PLASMALYTE-A 1000 IV (09:50)
[2024-06-02] MEDS: CELEBREX 200 MG PO (09:59)
[2024-06-02] MEDS: TYLENOL 1000 MG PO (09:59)
== END 2024-06-02 15:15 | disposition home or self-care (01) ==
LOC: SDS 06:20
PROVIDERS: ATTENDING PHYSICIAN Specialist; FAMILY PHYSICIAN Family Medicine
DX: M75.121 Complete rotator cuff tear or rupture of right shoulder, not specified as traumatic (principal); M75.41 Impingement syndrome of right shoulder
CPT/HCPCS: 29827; 29828; 36415; 80048; 85025; 93005; C1713

== ENCOUNTER → 2024-07-06 09:01 | Outpatient (REF) | payer BC, SELFPAY | LOC: WDC 09:01 | PROVIDERS: ATTENDING PHYSICIAN Surgery; FAMILY PHYSICIAN Family Medicine | DX: N64.4 Mastodynia (principal) | CPT/HCPCS: 76642; 77061; 77065 ==